=== PATIENT | female | born 2005 | race Caucasian/White ===

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

== ENCOUNTER 2023-09-27 09:13 | Emergency (ER) | payer OTHER, SELFPAY ==
[2023-09-27 09:16] VITALS: BP 163/99; PULSE 119; RESP 18; TEMP 36.4; O2SAT 94; BMI 44.4
--- NOTE | 2023-09-27 09:18 | EDS_ITS ---
HPI History of Present Illness Chief Complaint: Seizure Informant: patient Onset/Context/Timing Onset: Today Context: Sudden Onset Timing: Intermittent Quality: Tonic-clonic Location: Generalized Worsened by: Nothing Relieved by: Nothing Narrative Narrative: Patient presents with a seizure that occurred today. Patient states it began rather suddenly. Patient states she has a history of seizures. Patient states she did not get a lot of sleep last night and sometimes has seizures when she is sleep deprived. Patient denies biting her tongue. Patient states she was incontinent of urine. Patient denies any neck or back pain. Patient denies any chest pain or shortness of breath. Patient denies any nausea or vomiting. Patient states she takes lamotrigine for her seizures. [facility] Medical History Anxiety Depression Seizure Home Medications desogestrel 0.15 mg-ethinyl estradiol 0.03 mg tablet (Apri) 1 tab PO DAILY 01/14/21 [History Last Taken Unknown] sertraline 25 mg tablet 25 mg PO DAILY 01/14/21 [History Last Taken Unknown] Allergy/AdvReac Type Severity Reaction Status Date / Time Penicillins [PCN] Allergy Rash Verified 09/27/23 09:15 sulfamethoxazole Allergy Rash Verified 09/27/23 09:15 [From Bactrim] trimethoprim [From Bactrim] Allergy Rash Verified 09/27/23 09:15 Surgical History no surgical history no surgical history Social History Smoking Status: Current every day smoker tobacco type: e-cigarettes substance use type: does not use ROS ROS ED Constitutional Constitutional ED: Denies chills or fever(s) Eyes Eyes: Denies blurry vision or change in vision ENT ENT ED: Denies rhinorrhea or sore throat Cardiovascular Cardiovascular: Denies chest pain or palpitations Respiratory/Chest Respiratory/Chest: Denies cough or dyspnea Gastrointestinal Gastrointestinal: Denies nausea or vomiting Genitourinary Genitourinary ED: Denies dysuria or hematuria Musculoskeletal Musculoskeletal: Denies back pain or neck pain Integumentary Denies abscess or rash Neurologic Neurologic: Denies headache(s) or weakness Allergic/Immunologic Allergic/Immunologic ED: Denies mouth swelling or urticaria EXAM Physical Exam Const Vital Signs: 09/27/23 09:16 Temperature 97.6 F L Temperature Source Temporal Pulse Rate 119 H Respiratory Rate 18 Blood Pressure 163/99 H Blood Pressure Mean 120 Pulse Ox 94 Oxygen Delivery Method Room Air Positive well nourished and well developed General Appearance ED: well developed and NAD HEENT Reports moist mucous membranes Neck supple and no JVD Resp normal respiratory effort and clear to auscultation bilaterally Cardio regular rate and regular rhythm GI non-tender and non-distended Palpation: soft Neuro oriented x3, CN's II-XII intact bilaterally and no sensory deficits noted Sensorium / Orientation: alert Motor Exam: strength 5/5 throughout Psych mental status grossly normal MDM MDM MDM Narrative Medical decision making narrative: Differential diagnosis includes breakthrough seizure, medication noncompliance, and electrolyte abnormality. CBC will be obtained to assess for leukocytosis and anemia. Basic metabolic profile will be obtained to assess for electrolyte abnormality and renal function. Lamotrigine level will be ordered to assess for medication compliance. Lab Data Attestation: I reviewed the patient's lab results. Lab results narrative: CBC was reviewed and was within normal limits. Basic metabolic profile was reviewed and was within normal limits. Lamotrigine level would not be returned today. Patient will follow-up with her primary care physician for the results of that. Labs: Laboratory Results - last 24 hr 09/27/23 10:11 WBC 8.2 RBC 5.30 Hgb 14.6 Hct 43.4 MCV 81.9 MCH 27.5 MCHC 33.6 RDW Std Deviation 37.7 RDW Coeff of Gabriela 12.9 Plt Count 405 MPV 9.1 Immature Gran % (Auto) 0.400 Neut % (Auto) 78.8 H Lymph % (Auto) 11.2 L [place] % (Auto) 8.6 Eos % (Auto) 0.6 Baso % (Auto) 0.4 Absolute Neuts (auto) 6.5 Absolute Lymphs (auto) 0.92 Nucleated RBC % 0 Sodium 137 Potassium 4.3 Chloride 108 H Carbon Dioxide 25.0 Anion Gap 4 L BUN 7 Creatinine 0.80 Estim Creat Clear Calc 152.60 Est GFR (MDRD) Af Amer 117 Est GFR (MDRD) Non-Af 97 BUN/Creatinine Ratio 8.7 L Glucose 96 Calcium 9.6 Treatment and Re-Evaluation :: Patient was monitored here in the emergency department. Patient in no further seizure activity. Patient was advised of her findings. Patient was instructed to follow-up with her primary care physician for results of her lamotrigine level. Patient was instructed to continue her medications as previously prescribed. Patient was instructed to follow-up with her primary care physician in 5 to 7 days. Patient was instructed to return if worse in any way. Patient understood and was agreeable with the plan. All questions were answered. Discharge Plan Triage Chief Complaint: Seizure ED Provider: Sj Connors Dx/Rx/DC Orders Clinical Impression: Breakthrough seizure Instructions: ED Seizure, Recurrent (Adult) Prescriptions: No Action desogestrel-ethinyl estradiol [Apri] 0.15-0.03 mg tablet 1 tab PO DAILY Patient Comments: TAKE 1 TABLET BY MOUTH EVERY DAY sertraline 25 mg tablet 25 mg PO DAILY Primary Care Provider: Karla Joyner NP Referrals: Karla Joyner NP, PROJECT STRUCTURAL ENGINEER-C [Primary Care Provider] - 3-5 Days Disposition Disposition: Home, Self Care
[2023-09-27 10:14] VITALS: BP 124/76; PULSE 78; RESP 16; TEMP 36.4; O2SAT 99
[2023-09-27 10:21] LABS: Absolute Lymphocyte Count 0.92 X10^3/uL (0.83-4.51); Absolute Neutrophil Count 6.5 X10^3/uL (2.0-7.7); Basophil# 0.03 X10^3/uL; Basophil% 0.4 % (0-1); Eosinophil# 0.05 X10^3/uL; Eosinophils% 0.6 % (0-5); Hematocrit 43.4 % (37-47); Hemoglobin 14.6 g/dL (12.0-15.0); Lymphocyte # 0.92 X10^3/ul (0.83-4.51); Lymphocyte % 11.2 % (19-41); Mean Corp Hgb Conc 33.6 g/dL (32-36); Mean Corpuscular Hgb 27.5 pg (27.0-32.0); Mean Corpuscular Volume 81.9 fL (81-99); Mean Platelet Vol. 9.1 fl (6.2-12.0); Monocyte# 0.71 X10^3/uL; Monocyte% 8.6 % (0-10); NRBC Flagged by Analyzer 0 % (0-5); Neutrophil # 6.47 X10^3/uL (2.7-7.7); Neutrophil % 78.8 % (47-70); Platelet Count 405 K/mm3 (150-450); RBC Distribution Width CV 12.9 % (11.6-14.6); RBC Distribution Width SD 37.7 fl (35.1-43.9); White Blood Count 8.2 K/mm3 (4.4-11.0)
[2023-09-27 10:34] LABS: Anion Gap 4 (5-15); BUN 7 mg/dL (7-18); BUN/Creat Ratio 8.7 RATIO (10-20); Calcium,Total 9.6 mg/dL (8.5-10.1); Chloride 108 mmol/L (98-107); EST Glomerular Filtration Rate 97 mL/min (>60); Est Glom Filt Rate - Afr Amer 117 mL/min (>60); Glucose 96 mg/dL (74-106); Potassium 4.3 mmol/L (3.5-5.1); Sodium Level 137 mmol/L (136-145)
[2023-09-27 11:07] VITALS: TEMP 36.6
[2023-09-29 17:07] LABS: Lamotrigine (Lamictal) Level 2.4 ug/mL (2.0-20.0)
== END 2023-09-27 11:07 | disposition home or self-care (01) ==
PROVIDERS: Emergency Provider Emergency Medicine; PCP Nurse Practitioner Family; Visit Provider Emergency Medicine
DX: G40.909 Epilepsy, unspecified, not intractable, without status epilepticus (principal); F17.210 Nicotine dependence, cigarettes, uncomplicated; F41.9 Anxiety disorder, unspecified; F32.A Depression, unspecified
CPT/HCPCS: 80048; 82542; 85025; 99284; A4216

== ENCOUNTER → 2024-03-03 | Outpatient (CLI) | payer OTHER, SELFPAY ==
[2024-03-03 17:34] LABS: Absolute Lymphocyte Count 1.96 X10^3/uL (0.83-4.51); Absolute Neutrophil Count 5.3 X10^3/uL (2.0-7.7); Basophil# 0.03 X10^3/uL; Basophil% 0.3 % (0-1); Eosinophil# 0.66 X10^3/uL; Eosinophils% 7.7 % (0-5); Hematocrit 43.7 % (37-47); Hemoglobin 14.6 g/dL (12.0-15.0); Lymphocyte # 1.96 X10^3/ul (0.83-4.51); Lymphocyte % 22.8 % (19-41); Mean Corp Hgb Conc 33.4 g/dL (32-36); Mean Corpuscular Hgb 28.2 pg (27.0-32.0); Mean Corpuscular Volume 84.5 fL (81-99); Mean Platelet Vol. 9.1 fl (6.2-12.0); Monocyte# 0.69 X10^3/uL; NRBC Flagged by Analyzer 0 % (0-5); Neutrophil # 5.25 X10^3/uL (2.7-7.7); Platelet Count 460 K/mm3 (150-450); RBC Distribution Width CV 12.4 % (11.6-14.6); RBC Distribution Width SD 37.6 fl (35.1-43.9); Red Blood Count 5.17 M/mm3 (4.2-5.4); White Blood Count 8.6 K/mm3 (4.4-11.0)
[2024-03-03 17:47] LABS: Hemoglobin A1c 4.7 % (3.8-5.6)
[2024-03-03 18:03] LABS: hCG Titer Quant., Serum < 1 mIU/mL (1-3)
[2024-03-03 18:11] LABS: ALB/GLOB Ratio 0.9 RATIO (0.9-2.4); AST(SGOT) 16 U/L (15-37); Alanine Aminotransfer ALT/SGPT 18 U/L (13-56); Albumin, Serum 3.8 g/dL (3.2-5.0); Alkaline Phosphatase 127 U/L (45-117); Anion Gap 6 (5-15); BUN 9 mg/dL (7-18); BUN/Creat Ratio 9.5 RATIO (10-20); Calcium,Total 9.1 mg/dL (8.5-10.1); Chloride 104 mmol/L (98-107); Creatinine, Serum 0.94 mg/dL (0.55-1.02); EST Glomerular Filtration Rate 80 mL/min (>60); Est Glom Filt Rate - Afr Amer 97 mL/min (>60); Ferritin 34 ng/mL (8-252); Globulin 4.1 g/dL (2.2-4.2); Glucose 105 mg/dL (74-106); Iron 108 ug/dL (50-170); Iron Binding Capacity,Total 397 ug/dL (250-450); PERCENT IRON SATURATION 27.2 % (15.0-55.0); Potassium 4.2 mmol/L (3.5-5.1); Protein, Total 7.9 g/dL (6.4-8.2); Sodium Level 137 mmol/L (136-145); Thyroid Stim Hormone (TSH) 2.01 uIU/mL (0.358-3.74)
[2024-03-09 11:59] LABS: Lamotrigine (Lamictal) Level 8.1 ug/mL (2.0-20.0)
== END | disposition home or self-care (01) ==
LOC: LAB 16:41
PROVIDERS: PCP Nurse Practitioner Family; Referring Provider Psychiatry & Neurology Neurology; Visit Provider Psychiatry & Neurology Neurology
DX: G40.909 Epilepsy, unspecified, not intractable, without status epilepticus (principal); R42 Dizziness and giddiness; R11.0 Nausea; R25.1 Tremor, unspecified; Z13.29 Encounter for screening for other suspected endocrine disorder; Z13.1 Encounter for screening for diabetes mellitus
CPT/HCPCS: 36415; 80053; 82542; 82728; 83036; 83540; 83550; 84443; 84702; 85025